=== PATIENT | female | born 1985 | race Caucasian/White ===

== ENCOUNTER 2018-01-12 00:01 | Inpatient (IN) | payer OTHER ==
[~2018-01-12] VITALS: Ht 157.5 cm; Wt 67.0 kg
[~2018-01-12 00:01] MED LIST: ALEVE220 MG PO; PRENA1 CHEW TA1.4 MG PO; VITAFOL-OB+DHA1 EACH
[2018-01-12] MEDS ORDERED: ELITE OB DHA S1 EACH PO (01:07)
--- NOTE | 2018-01-12 08:39 | PR ---
[facility] [address] [facility] [place], [place] [address] Signed Progress Notes IP Datetime Report Generated by CPN: 01/12/2018 08:39 PROGRESS NOTES: [id number] Impression: Normal progression of labor Procedures: Artificial ROM Plan: Continue present management; Anticipate Vaginal Delivery VITAL SIGNS: [id number] Vital Signs: Reviewed; Within Normal Limits EXAM: [id number] Dilatation: 4.5 Effacement: 60 Station: -2 Uterine Contractions: every 2-4 minutes MEMBRANES: [id number] Membrane Status: Ruptured Amniotic Fluid Color: Clear ROM Note: AROM without difficulty, head well applied to cervix. Comments: Comfortable with Epidural, will continue observation. Fetus A: [id number] FHR Baseline: 120 Variability: Moderate 6-25bpm Accelerations: 15X15 Presentation: Vertex Fetus B: [id number] Signing Physician: Suzanne Charles MD Copies: ~ *Electronically Signed* 01/12/18 0839 SUZANNE CHARLES MD PATIENT NAME: ALEN AMAYA PROGRESS NOTE DATE OF : 85 PHYSICIAN: SUZANNE CHARLES MD RPT #: [id number] REPORT IS CONFIDENTIAL AND NOT TO BE RELEASED WITHOUT AUTHORIZATION
--- NOTE | 2018-01-13 09:40 | PR ---
[facility] [address] [facility] [place] [address] Signed PP Progress Notes Datetime Report Generated by CPN: 01/13/2018 09:40 SUBJECTIVE: [id number] Pain: Within normal limits Nausea/Vomiting: Denies Vital Signs: [id number] Vital Signs: Reviewed; Within Normal Limits Notable Details: PP Hgb/Hct = 9.4/27.5 EXAM: [id number] Abdomen/Uterus: Normal Lochia: Normal Extremities: Normal IMPRESSION/PLAN/PROCEDURES: [id number] Impression: Normal progression Plan: Discharge Procedures: None Progress Notes: Doing well, wants to go home. Signing Physician: Suzanne Charles MD Copies: ~ *Electronically Signed* 01/13/18 0940 SUZANNE CHARLES MD PATIENT NAME: ALEN AMAYA PROGRESS NOTE DATE OF : 85 PHYSICIAN: SUZANNE CHARLES MD RPT #: [id number] REPORT IS CONFIDENTIAL AND NOT TO BE RELEASED WITHOUT AUTHORIZATION
== END 2018-01-13 12:00 | disposition home or self-care (01) | DRG 775 ==
LOC: FBC 00:01
PROVIDERS: ADMIT General Practice
PROC: 10E0XZZ Delivery of Products of Conception, External Approach (ICD-10-PCS; principal; 2018-01-12)
PROC: 0HQ9XZZ Repair Perineum Skin, External Approach (ICD-10-PCS; 2018-01-12)
PROC: 10907ZC Drainage of Amniotic Fluid, Therapeutic from Products of Conception, Via Natural or Artificial Opening (ICD-10-PCS; 2018-01-12)
PROC: 3E0S3BZ Introduction of Anesthetic Agent into Epidural Space, Percutaneous Approach (ICD-10-PCS; 2018-01-12)
PROC: 00HU33Z Insertion of Infusion Device into Spinal Canal, Percutaneous Approach (ICD-10-PCS; 2018-01-12)
DX: O36.5930 Maternal care for other known or suspected poor fetal growth, third trimester, not applicable or unspecified (principal); Z3A.39 39 weeks gestation of pregnancy; Z37.0 Single live birth; O70.0 First degree perineal laceration during delivery; O99.334 Smoking (tobacco) complicating childbirth; F17.210 Nicotine dependence, cigarettes, uncomplicated
CPT/HCPCS: 01960; 36415; 85027; J7120

== ENCOUNTER 2024-04-03 05:40 | Day surgery (SDC) | payer OTHER ==
[2024-03-29 14:41] VITALS: BP 128/75
[~2024-04-03] VITALS: Ht 157.5 cm; Wt 55.5 kg
[~2024-04-03 05:40] MED LIST changes: +ACYCLOVIR200 MG PO; +ELITE OB DHA S1 EACH PO; +LACTATED RINGER'S 1,000 ML IV SCH; +SERTRALINE HCL50 MG PO
[2024-04-03 06:08] VITALS: BP 125/88
[2024-04-03] MEDS ORDERED: ASHLYNA 0.15-01 EACH PO (06:10)
[2024-04-03] MEDS ORDERED: IBLOOD GLUCOSE TEST STRIP 1 EA TEST VI PRN ×2 (07:00→08:45)
[2024-04-03] MEDS ORDERED: LIDOCAINE HCL 1% 5 ML SDV INJ ONE (07:00)
[2024-04-03] MEDS ORDERED: CEFAZOLIN SODIUM 2 GM/20 ML SYR IV SCH (07:00)
[2024-04-03] MEDS ORDERED: MIDAZOLAM HCL 2 MG/2 ML VIAL ONE (07:06)
[2024-04-03] MEDS ORDERED: HYDROmorphone HCL 2 MG/ML VIAL ONE (07:06)
[2024-04-03] MEDS ORDERED: KETAMINE in NS 50 MG/5 ML SYR ONE (07:07)
[2024-04-03] MEDS ORDERED: LIDOCAINE HCL 4% 5 ML AMP ONE (07:07)
[2024-04-03] MEDS ORDERED: MAGNESIUM SULFATE 1 GM/2 ML VIAL ONE (07:08)
[2024-04-03] MEDS ORDERED: dexmedeTOMIDine HCl 200 MCG/2 ML VIAL ONE (07:08)
[2024-04-03] MEDS ORDERED: DEXAMETHASONE SOD PHOS 4 MG/ML VIAL ONE (07:08)
[2024-04-03] MEDS ORDERED: propofoL 200 MG/20 ML VIAL ONE (07:08)
[2024-04-03] MEDS ORDERED: SODIUM CHLORIDE 0.9% 40 ML IV ONE (07:08)
[2024-04-03] MEDS ORDERED: LIDOCAINE HCL 2% 5 ML SDV ONE (07:08)
[2024-04-03] MEDS ORDERED: ROCURONIUM BROMIDE 50 MG/5 ML SYR ONE (07:08)
[2024-04-03] MEDS ORDERED: ACETAMINOPHEN 1,000 MG/100 ML VIAL ONE (07:08)
[2024-04-03] MEDS ORDERED: ondansetron HCL 4 MG/2 ML VIAL ONE (07:08)
[2024-04-03] MEDS ORDERED: NALOXONE HCL 0.4 MG SYR IV PRN ×2 (08:45→10:00)
[2024-04-03] MEDS ORDERED: fentaNYL citrate 50 MCG/ML SDV IV PRN (08:45)
[2024-04-03] MEDS ORDERED: ondansetron HCL 4 MG/2 ML VIAL IV PRN ×2 (08:45→10:00)
[2024-04-03] MEDS ORDERED: droPERidol 5 MG/2 ML VIAL IV PRN (08:45)
[2024-04-03] MEDS ORDERED: SUGAMMADEX SODIUM 200 MG/2 ML ML ONE (08:50)
[2024-04-03] MEDS ORDERED: FLUORESCEIN SODIUM 500 MG/5 ML ML ONE (08:51)
[2024-04-03] MEDS ORDERED: ePHEDrine sulfate 50 MG/ML AMP ONE (08:58)
--- NOTE | 2024-04-03 09:55 | NUR ---
04/03/24 0955 Vidhya Sanchez 0960 PT ARRIVED IN PACU NON RESPONSIVE TO NOXIOUS STIMULI. CHIN LIFT HELD BY RN. 0943 PT REACTIVE TO NOXIOUS STIMULI. 0950 OXYGEN REMOVED. SATS 95-100% ON RA. NO C/O'S.
[2024-04-03] MEDS ORDERED: OXYCODONE/APAP 5/325 TAB PO PRN (10:00)
[2024-04-03] MEDS ORDERED: MORPHINE SULFATE 10 MG/ML VIAL IV PRN (10:00)
[2024-04-03] MEDS ORDERED: FAMOTIDINE 20 MG/ 2 ML VIAL IV PRN (10:00)
[2024-04-03] MEDS ORDERED: PROCHLORPERAZINE EDISYLATE 10 MG/2 ML VIAL IV PRN (10:00)
[2024-04-03] MEDS ORDERED: SIMETHICONE 125 MG TABLET CHEWABLE PO PRN (10:00)
[2024-04-03 10:32] VITALS: BP 106/69
[2024-04-03 11:27] VITALS: BP 113/74
--- NOTE | 2024-04-03 11:34 | NUR ---
SARIAH 1020-PT BACK TO ROOM FROM PACU. RECEIVED REPORT FROM TOBY ERVIN. PT IS LAYING ON RIGHT SIDE WITH EYES CLOSED. ANSWERES QUESTIONS. RATES PAIN 3/10 AND THIS IS TOLERABLE FOR HER. PT TAKING SIPS OF WATER. NO OTHER NEEDS AT THIS TIME. CALL LIGHT WITHIN REACH.
--- NOTE | 2024-04-03 11:40 | NUR ---
1127-PT LAYING ON RIGHT SIDE WITH EYES CLOSED. OPENS EYES WITH VERBAL STIMULI. RATES PAIN 3/10 AND THIS IS TOLERABLE AT THIS TIME. PT TAKING SIPS OF WATER. MOM AT BEDSIDE. NO OTHER NEEDS AT THIS TIME. CALL LIGHT WITHIN REACH.
[2024-04-03 12:29] VITALS: BP 100/56
--- NOTE | 2024-04-03 12:36 | NUR ---
PT MOVES SELF TO LEFT SIDE. HOB ELEVATED. WARM BLANKETS PROVIDED. PT RATES PAIN 3/10. PT HAS PILLOW TO SPLINT WITH. PT EATING PUDDING. ALL QUESTIONS ANSWERED. NO OTHER NEEDS AT THIS TIME. MOM IN ROOM. CALL LIGHT WITHIN REACH.
[2024-04-03 13:23] VITALS: BP 110/75
--- NOTE | 2024-04-03 16:16 | NUR ---
LE 1305-PT AMBULATES TO RESTROOM. PT VOIDS 100ML OF YELLOW URINE. LE 1308-PT BACK TO ROOM. MOM AT BEDSIDE. CALL LIGHT WITHIN REACH.
--- NOTE | 2024-04-03 16:19 | NUR ---
LE 1322-PAIN MEDICATION GIVEN PER EMAR. LE 1324-PT LAYING IN BED. RESP EVEN AND UNLABORED. PT IS READY TO GO HOME. PT WILL GET DRESSED. MOM IN ROOM TO HELP WITH PT. CALL LIGHT WITHIN REACH. LE 1355-WENT OVER DISCHARGE INSTRUCTIONS WITH PT AND MOM. WENT OVER POSTOP MEDICATIONS WITH PT. ALL QUESTIONS ANSWERED. PT AMBULATES TO WHEELCHAIR AND RIDE PROVIDED TO FRONT OF HOSPITAL WHERE MOM WAS WAITING WITH THE CAR.
--- NOTE | 2024-04-06 17:12 | PATH ---
[facility] [address] [place], [place] [address] Signed SPECIMEN(S): A FALLOPIAN TUBES, CERVIX, UTERUS SPECIMEN(S): B ENDOMETRIOSIS SPECIMEN SOURCE: A. FALLOPIAN TUBES, CERVIX, UTERUS B. ENDOMETRIOSIS CLINICAL HISTORY: Adenomyosis, dysmenorrhea FINAL PATHOLOGIC DIAGNOSIS: A. Uterus, cervix and fallopian tubes: - Secretory endometrium, negative for atypical features or malignancy. - Endometrial adenomyosis. - Benign endo- and ectocervix. - Two segments of benign fimbriated oviduct with incidental benign paratubal serous cysts. B. Endometriosis: - Endometriosis, benign. JVR:ana MICROSCOPIC EXAMINATION: Histologic sections of all submitted blocks are examined by light microscopy. These findings, together with the gross examination, support the pathologic diagnosis. GROSS DESCRIPTION: A. The specimen, labeled and designated "Mey, R, uterus, cervix, fallopian tubes," is received in formalin and consists of uterus with attached cervix and detached bilateral fallopian tubes. The uterus and cervix weighs 152 g and measuring from cervix to fundus 9.6 cm, cornu to cornu 6.0 cm, and anterior to posterior 4.5 cm. The cervix measures 3.1 x 3.0 cm, ectocervix pink-gonsalves smooth with an area of erosion adjacent to the external os measuring 1.3 x 0.7 cm, the external os is slit like and patent measuring 1.4 cm in greatest dimension. The specimen is opened to reveal triangular-shaped endometrium measuring 3.7 x 3.2 cm and is pink-gonsalves thickened ranging thickness from 0.2 to 0.5 cm consistent with possible proliferative endometrium. The myometrium measures 2.0 cm and is sectioned to reveal pink-gonsalves trabeculated cut services with a single PATIENT NAME: ALEN MATHIAS PATHOLOGY DATE OF : 85 REPORT #: [id number] PHYSICIAN: SOILA PATHOLOGY PCP: SOFÍA JETT MD REPORT IS CONFIDENTIAL AND NOT TO BE RELEASED WITHOUT AUTHORIZATION [facility] [address] [place], [place] [address] Signed intramural leiomyoma measuring 1.0 cm in greatest dimension. The first detached fallopian tube measures 4.3 cm in length by 0.5 cm in greatest diameter with attached fimbriated end and multiple peritubular cysts range size from 0.2 to 0.6 cm. The second detached fallopian tube measures 4.2 cm in length by 0.5 cm in greatest diameter with attached fimbriated end and multiple peritubular cysts range size from 0.1 to 0.7 cm. Both tubes are sectioned to reveal grossly unremarkable lumen. Ore Feeder sections are submitted. Cassette Summary: (A1) customer account representative sections of cervix (A2) customer account representative sections of endometriummyometrium (A3) additional customer account representative sections of the endometrium (A4) customer account representative section of leiomyoma (A5) customer account representative sections of the first described fallopian tube (A6) customer account representative sections of the second described fallopian tube B. The specimen, labeled and designated "Libby Mathias, endometriosis," is received in formalin and consists of multiple fragments inked gonsalves to red-brown soft tissue measuring 2.0 x 2.0 x 0.4 cm in aggregate. Specimen entirely submitted in single cassette. ALEJANDRO (under the direct supervision of a pathologist) The Gross Description was prepared using a voice recognition system. The report was reviewed for accuracy; however, sound-alike word errors, addition and/or deletions may occur. If there is any question about this report, please contact Client Services. PERFORMING LABORATORY: Technical component was performed by [facility], [address] [place] [id number] (CLIA# [id number]). Professional interpretation was performed by [facility], [address] [place] [id number] (CLIA#: [id number]). Diagnostician: Sundar Crow MD Pathologist Electronically Signed 04/06/2024 Copies: ~ PATIENT NAME: ALEN MATHIAS PATHOLOGY DATE OF : 85 REPORT #: [id number] PHYSICIAN: WINSTONRoyal Madina CURT PCP: SOFÍA EJTT MD REPORT IS CONFIDENTIAL AND NOT TO BE RELEASED WITHOUT AUTHORIZATION
== END 2024-04-03 13:55 | disposition home or self-care (01) ==
LOC: DS 05:40 → OPS 05:40 → DS 07:30 → OPS 07:30
PROVIDERS: ATTEND Obstetrics & Gynecology
PROC: 0UT74ZZ Resection of Bilateral Fallopian Tubes, Percutaneous Endoscopic Approach (ICD-10-PCS; 2024-04-03)
PROC: 0UB14ZZ Excision of Left Ovary, Percutaneous Endoscopic Approach (ICD-10-PCS; 2024-04-03)
PROC: 0UT94ZZ Resection of Uterus, Percutaneous Endoscopic Approach (ICD-10-PCS; principal; 2024-04-03 07:30)
DX: N80.03 Adenomyosis of the uterus (principal); N80.30 Endometriosis of pelvic peritoneum, unspecified; N80.102 Endometriosis of left ovary, unspecified depth; N83.8 Other noninflammatory disorders of ovary, fallopian tube and broad ligament; F17.290 Nicotine dependence, other tobacco product, uncomplicated; Z98.51 Tubal ligation status; Z79.899 Other long term (current) drug therapy; Z88.0 Allergy status to penicillin; Z88.5 Allergy status to narcotic agent; Z91.048 Other nonmedicinal substance allergy status
CPT/HCPCS: 00840; 88304; 88305; 88307; A9270; J0131; J0690; J1100; J1170; J2001; J2250; J2405; J2704; J3475; J3490; J7121